=== PATIENT | female | born 1995 | race Caucasian/White ===

== ENCOUNTER 2017-06-19 09:06 | Emergency (ER) | payer OTHER ==
--- NOTE | 2017-06-19 09:12 | ER Report ---
History and Physical Time Seen By MD: 09:11 HPI/ROS CHIEF COMPLAINT: Left elbow Pain HISTORY OF PRESENT ILLNESS: Patient is a 21-year-old female with no contributory past medical history who slipped and fell on the ice and is complaining of left elbow pain also pain with extension at the elbow. She has no prior similar injuries she denies injuring any other extremity. She did not strike her head she has no loss of consciousness she complains of no neck or back pain. REVIEW OF SYSTEMS: Respiratory: No cough, no dyspnea. Cardiovascular: No chest pain, no palpitations. Gastrointestinal: No vomiting, no abdominal pain. Musculoskeletal: No back pain. Left elbow pain Allergies: Coded Allergies: No Known Drug Allergies (Unverified , 06/19/17) Home Meds No Active Prescriptions or Reported Meds Past Medical/Surgical History Noncontributory Constitutional Vital Sign - Last 24 Hours 06/19/17 09:16 Temp 97.9 Pulse 85 Resp 14 B/P (MAP) 133/70 Pulse Ox 98 O2 Delivery Room Air Physical Exam General Appearance: The patient is alert, has no immediate need for airway protection and no current signs of toxicity. Musculoskeletal: Neck: Neck is supple and non tender. Examination of the left upper extremity reveals no tenderness or deformity to the shoulder or humerus. Patient is tender to the left elbow area and complains of inability to fully extend the elbow. She also reports some numbness along the forearm. Skin: No rashes or lesions. Examination of the Left hand reveals no acute deformity. The patient is able to give a thumbs up sign, is able to make an okay sign, and is able to AB duct the fingers. Sensation is intact over the dorsal 1st web space, the volar aspect of the 2nd finger, and the volar aspect of the 5th finger. Capillary refill is brisk. Medical Decision Making EKG/Imaging Imaging [place] [facility] [place] NAME: Nelly Christian : 1995 MR: [id number] V: [id number] EXAM DATE: ORDERING PHYSICIAN: ANDREW FINNEGAN TECHNOLOGIST: [place] [facility] [place] Patient: Nelly Christian : 1995 Visit/Account:[id number] Date of Sevice: 06/19/2017 WRIST LEFT MIN 3 VIEW, FOREARM LEFT, ELBOW 3 VIEW LEFT History: Fall COMPARISON: none. FINDINGS: 8 views are provided. No evidence of fracture. Joint spaces and alignment within normal limits. Soft tissues are unremarkable. IMPRESSION: Negative views of the left wrist, forearm and elbow. Report Dictated By: Westley Shepard MD at 06/19/2017 10:07 AM Report E-Signed By: Westley Shepard MD at 06/19/2017 10:09 AM WSN:[email or web address] ED Course/Re-evaluation ED Course 06/19/2017 9:23:53 am Plan at this time will be pain relief with oral ibuprofen. Patient requests no narcotics. Plan will be x-ray of the left elbow, forearm, wrist. Decision to Disposition Date: Jun 19, 2017 Decision to Disposition Time: 10:16 Depart Departure Latest Vital Signs Vital Signs Date Time Temp Pulse Resp B/P (MAP) Pulse Ox O2 Delivery O2 Flow Rate FiO2 06/19/17 09:16 97.9 85 14 133/70 98 Room Air Impression: Primary Impression: Elbow contusion Condition: Improved Disposition: HOME OR SELF-CARE New Scripts Naproxen (NAPROXEN) 375 Mg Tablet 375 MG PO TID for PAIN, #30 TAB 0 Refills Prov: ANDREW FINNEGAN MD 06/19/17 Patient Instructions: Elbow Sprain (ED), How to Use a Sling (GEN) Additional Instructions: Discontinue use of sling after 2-3 days and start range of motion exercises Problem Qualifiers Primary Impression: Elbow contusion Encounter type: initial encounter Laterality: left Qualified Codes: S50.02XA - Contusion of left elbow, initial encounter ANDREW FINNEGAN MD Jun 19, 2017 09:12
[2017-06-19 09:16] VITALS: BP 133/70
[2017-06-19] MEDS ORDERED: IBUPROFEN 800 MG TAB PO ONE (09:20)
[2017-06-19] MEDS ORDERED: ACETAMINOPHEN 325 MG TAB PO ONE (10:10)
--- NOTE | 2017-06-19 10:14 | RADIOLOGY IMAGING REPORT ---
FACILITY: [facility] PATIENT NAME: Nelly Christian : 1995 MR: [id number] V: [id number] EXAM DATE: ORDERING PHYSICIAN: ANDREW FINNEGAN TECHNOLOGIST: Location: [facility] Patient: Nelly Christian : 1995 Visit/Account:[id number] Date of Sevice: 06/19/2017 WRIST LEFT MIN 3 VIEW, FOREARM LEFT, ELBOW 3 VIEW LEFT History: Fall COMPARISON: none. FINDINGS: 8 views are provided. No evidence of fracture. Joint spaces and alignment within normal wang its. Soft tissues are unremarkable. IMPRESSION: Negative views of the left wrist, forearm and elbow. Report Dictated By: Westley Shepard MD at 06/19/2017 10:07 AM Report E-Signed By: Westley Shepard MD at 06/19/2017 10:09 AM WSN:[email or web address]
--- NOTE | 2017-06-19 10:15 | RADIOLOGY IMAGING REPORT ---
FACILITY: [facility] PATIENT NAME: Nelly Christian : 1995 MR: [id number] V: [id number] EXAM DATE: ORDERING PHYSICIAN: ANDREW FINNEGAN TECHNOLOGIST: Location: [facility] Patient: Nelly Christian : 1995 Visit/Account:[id number] Date of Sevice: 06/19/2017 WRIST LEFT MIN 3 VIEW, FOREARM LEFT, ELBOW 3 VIEW LEFT History: Fall COMPARISON: none. FINDINGS: 8 views are provided. No evidence of fracture. Joint spaces and alignment within normal wang its. Soft tissues are unremarkable. IMPRESSION: Negative views of the left wrist, forearm and elbow. Report Dictated By: Westley Shepard MD at 06/19/2017 10:07 AM Report E-Signed By: Westley Shepard MD at 06/19/2017 10:09 AM WSN:[email or web address]
--- NOTE | 2017-06-19 10:15 | RADIOLOGY IMAGING REPORT ---
FACILITY: [facility] [place] PATIENT NAME: Nelly Christian : 1995 MR: [id number] V: [id number] EXAM DATE: ORDERING PHYSICIAN: ANDREW FINNEGAN TECHNOLOGIST: Location: [facility] Patient: Nelly Christian : 1995 Visit/Account:[id number] Date of Sevice: 06/19/2017 WRIST LEFT MIN 3 VIEW, FOREARM LEFT, ELBOW 3 VIEW LEFT History: Fall COMPARISON: none. FINDINGS: 8 views are provided. No evidence of fracture. Joint spaces and alignment within normal wang its. Soft tissues are unremarkable. IMPRESSION: Negative views of the left wrist, forearm and elbow. Report Dictated By: Westley Shepard MD at 06/19/2017 10:07 AM Report E-Signed By: Westley Shepard MD at 06/19/2017 10:09 AM WSN:[email or web address]
[2017-06-19] MEDS ORDERED: NAPR375T44 PO (10:17)
== END 2017-06-19 10:30 | disposition home or self-care (01) ==
LOC: ER 09:15
DX: S50.02XA Contusion of left elbow, initial encounter (principal); W00.0XXA Fall on same level due to ice and snow, initial encounter
CPT/HCPCS: 73080; 73090; 73110; 99284; A4565

== ENCOUNTER 2017-08-24 18:19 | Emergency (ER) | payer OTHER ==
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
[~2017-08-24 18:19] MED LIST changes: -BIRTH CONTROL; -ONDA8TAB94 PO; -School Note
[2017-08-24] MEDS ORDERED: BIRTH CONTROL (18:32)
[2017-08-24 19:00] VITALS: BP 111/76
--- NOTE | 2017-08-24 19:04 | RADIOLOGY IMAGING REPORT ---
FACILITY: [facility] PATIENT NAME: Nelly Christian : 1995 MR: [id number] V: [id number] EXAM DATE: ORDERING PHYSICIAN: SHANIQUE RYAN TECHNOLOGIST: [place] [facility] [place]: Nelly Christian : 1995 Visit/Account:[id number] Date of Sevice: 08/24/2017 CT Head without contrast Indication: Fall from horse. Short-term memory loss. Comparison: None available Technique: Axial CT images were obtained through the brain from the skull base to the vertex without administration of IV contrast. Reformatted coronal and sagittal images were also obtained. One of the following dose optimization techniques was utilized in the performance of this exam: autom ated exposure control; adjustment of the mA and/or kV according to the patient's size; or use of an i terative reconstruction technique. Specific details can be referenced in the facility's radiology CT exam operational policy. Findings: No evidence of mass, mass effect, or midline shift. No acute intracranial hemorrhage or acute territorial infarction. No extra-axial fluid collection or hydrocephalus. No abnormal density. [place]/white matter differentiat ion appears normal. Bony structures show no fractures or lesions. Rightward deviation nasal septum. Benign calcification seen in the posterior right scalp. Mucosal thickening seen in the left ethmoid and maxillary sinuses. The remaining sinuses and mastoids visualized are clear. IMPRESSION: 1. No acute intracranial abnormality. 2. Left sided sinus disease. Report Dictated By: Devan Rojo at 08/24/2017 6:54 PM Report E-Signed By: Devan Rojo at 08/24/2017 7:00 PM WSN:[id number]
[2017-08-25] MEDS ORDERED: School Note (14:10)
[2017-08-26] MEDS ORDERED: ONDA8TAB94 PO (08:28)
== END 2017-08-24 19:30 | disposition home or self-care (01) ==
LOC: ER 18:28
DX: S06.0X0A Concussion without loss of consciousness, initial encounter (principal)
CPT/HCPCS: 70450; 99282

== ENCOUNTER → 2017-08-24 | Outpatient (CLI) | payer OTHER ==
[~2017-08-24] MED LIST: BIRTH CONTROL; NAPR375T44 PO; ONDA8TAB94 PO; School Note
== END ==
LOC: AMB 17:55
PROVIDERS: ATTEND Nurse Practitioner
DX: S09.90XA Unspecified injury of head, initial encounter (principal); R41.0 Disorientation, unspecified; S30.811A Abrasion of abdominal wall, initial encounter; V80.010A Animal-rider injured by fall from or being thrown from horse in noncollision accident, initial encounter
CPT/HCPCS: A0425; A0429